=== PATIENT | female | born 1940 | race Two or more races ===

== ENCOUNTER 2018-04-09 10:10 | Outpatient (CLI) | payer OTHER ==
[~2018-04-09 10:10] MED LIST: AVALIDE 300-12.1 TA1; NORVASC5 MG; SYNTHROID50 MCG PO; TOPROL XL50 MG
== END 2018-04-09 10:13 | disposition home or self-care (01) ==
LOC: SONOGRAMA 10:10 → MAMO-SONO 10:15
DX: M65.811 Other synovitis and tenosynovitis, right shoulder (principal)

== ENCOUNTER 2018-05-02 10:32 | Outpatient (CLI) | payer OTHER | END 2018-05-02 10:36 | disposition home or self-care (01) | LOC: NUCLEAR 10:32 | DX: I11.9 Hypertensive heart disease without heart failure (principal); R00.1 Bradycardia, unspecified; I52 Other heart disorders in diseases classified elsewhere ==

== ENCOUNTER → 2018-10-14 | Outpatient (CLI) | payer OTHER | END | disposition home or self-care (01) | LOC: RAD 501 10:56 | DX: S09.93XA Unspecified injury of face, initial encounter (principal); S49.91XA Unspecified injury of right shoulder and upper arm, initial encounter ==

== ENCOUNTER 2018-11-18 09:23 | Emergency (ER) | payer OTHER ==
[~2018-11-18] VITALS: Ht 157.5 cm; Wt 63.5 kg
[2018-11-18] MEDS ORDERED: FORTAMET500 MG (09:33)
[2018-11-19] MEDS ORDERED: CARDURA8 MG PO (11:56)
== END 2018-11-18 15:45 | disposition home or self-care (01) ==
LOC: ER 09:23
DX: R10.11 Right upper quadrant pain (principal); R11.2 Nausea with vomiting, unspecified

== ENCOUNTER 2018-11-19 11:40 | Inpatient (IN) | payer OTHER ==
[~2018-11-19] VITALS: Ht 157.5 cm; Wt 63.5 kg
[~2018-11-19 11:40] MED LIST changes: +FORTAMET500 MG
[2018-11-19] MEDS ORDERED: CARDURA8 MG PO (11:56)
--- NOTE | 2018-11-19 11:56 | NUR ---
PACIENTE ALERTA Y ORIENTADA EN NELY KATHY ESFERAS, REFIERE DOLOR ABDOMINAL Y NAUSEAS DESDE EL DANI. VIENE CON REFERIDO MEDICO DE DR DIONISIO RIGGS POR SBO VS DIVERTICULITIS.
--- NOTE | 2018-11-19 13:05 | NUR ---
SE ORIENTA A PT SOBRE ORDENES MEDICAS, REFIERE ENTENDER. SE COLECTAN MUESTRAS Y SE CANALIZA BAJO MEDIDAS ASEPTICAS.
--- NOTE | 2018-11-19 13:46 | NUR ---
SE ORIENTA A PT SOBRE CT ABDOMINOPELVICO Y CONTRASTE PO . REFIERE ENTENDER. PT COMIENZA A TOMARSE CONTRASTES, TOLERA AL MOMENTO.
--- NOTE | 2018-11-19 15:29 | NUR ---
SE RECIBE DE TURNO ANTERIOR FEMENINA DE 77ANOS ALERTA,ORIENTADA EN KATHY ESFERAS,EN COMPANIA DE FAMILIAR.PENDIENTE CT ABD/PEL 4:40PM.
== END 2018-11-22 14:37 | disposition home or self-care (01) | DRG 389 ==
LOC: ER 11:40 → MEDI 17:41
PROVIDERS: ADMIT Internal Medicine
PROC: BW21ZZZ Computerized Tomography (CT Scan) of Abdomen and Pelvis (ICD-10-PCS; principal; 2018-11-19)
PROC: 0DH67UZ Insertion of Feeding Device into Stomach, Via Natural or Artificial Opening (ICD-10-PCS; 2018-11-20)
PROC: 3E0G76Z Introduction of Nutritional Substance into Upper GI, Via Natural or Artificial Opening (ICD-10-PCS; 2018-11-20)
PROC: 3E0336Z Introduction of Nutritional Substance into Peripheral Vein, Percutaneous Approach (ICD-10-PCS; 2018-11-20)
DX: K56.690 Other partial intestinal obstruction (principal); N39.0 Urinary tract infection, site not specified; I11.9 Hypertensive heart disease without heart failure; E05.80 Other thyrotoxicosis without thyrotoxic crisis or storm; T38.1X5A Adverse effect of thyroid hormones and substitutes, initial encounter; E11.65 Type 2 diabetes mellitus with hyperglycemia; E03.8 Other specified hypothyroidism

== ENCOUNTER 2019-02-27 08:06 | Outpatient (CLI) | payer OTHER ==
[~2019-02-27 08:06] MED LIST changes: +CARDURA8 MG PO
== END 2019-02-27 08:17 | disposition home or self-care (01) ==
LOC: RX STUDY 08:06
DX: K57.30 Diverticulosis of large intestine without perforation or abscess without bleeding (principal); Z86.010 Personal history of colon polyps

== ENCOUNTER 2019-03-13 11:25 | Outpatient (CLI) | payer OTHER | END 2019-03-13 11:27 | disposition home or self-care (01) | LOC: RAD 11:25 | DX: M25.562 Pain in left knee (principal) ==

== ENCOUNTER 2019-03-19 07:58 | Outpatient (CLI) | payer OTHER | END 2019-03-19 08:01 | disposition home or self-care (01) | LOC: MRI 07:58 | DX: M25.562 Pain in left knee (principal) | CPT/HCPCS: 73721 ==

== ENCOUNTER 2019-03-24 09:56 | Outpatient (CLI) | payer OTHER | END 2019-03-24 09:58 | disposition home or self-care (01) | LOC: RAD 09:56 | DX: R07.89 Other chest pain (principal); Z01.818 Encounter for other preprocedural examination ==

== ENCOUNTER 2019-06-05 12:06 | Outpatient (CLI) | payer OTHER | END 2019-06-05 12:20 | disposition home or self-care (01) | LOC: RAD 12:06 | DX: M25.562 Pain in left knee (principal); E78.00 Pure hypercholesterolemia, unspecified; I11.9 Hypertensive heart disease without heart failure; E04.2 Nontoxic multinodular goiter ==

== ENCOUNTER 2019-08-27 07:54 | Outpatient (CLI) | payer OTHER | END 2019-08-27 08:03 | disposition home or self-care (01) | LOC: NUCLEAR 07:54 | DX: I82.403 Acute embolism and thrombosis of unspecified deep veins of lower extremity, bilateral (principal) ==

== ENCOUNTER 2019-12-16 09:02 | Outpatient (CLI) | payer OTHER | END 2019-12-16 09:04 | disposition home or self-care (01) | LOC: SONOGRAMA 09:02 | PROVIDERS: ATTEND Internal Medicine | DX: R10.84 Generalized abdominal pain (principal) ==

== ENCOUNTER 2020-11-18 14:55 | Inpatient (IN) | payer OTHER ==
[~2020-11-18] VITALS: Ht 157.5 cm; Wt 59.0 kg
[2020-11-18] MEDS ORDERED: DOXAZOSIN MESYLA8 MG PO (15:23)
--- NOTE | 2020-11-18 15:23 | NUR ---
SE RECIBE PACIENTE ALERTA, ORIENTADA X 3 ESFERAS LLEGA EN AMBULANCIA REFERIDA DE [facility]. PERSONAL DE PARAMEDICOS INDICAN QUE FUE POR DOLOR DE PECHO, LLEGA CON IV. TRIDIL 3ML. SE ESTIMAN S/V SE UBICA EN AREA DE CHEST PAIN , SE CONECTA A MONITOR CARDIACO, SE REALIZA EKG. SE PRESENTA A POR PERSONAL DE AMBULANCIAS, SE ALLYSON CON BARRANDAS ELEVADAS A NIVEL MAS BAJO EN CAMA # 16. NO SE PUDO COMPLETAR LA RESOLUCION DE MEDICAMENTOS YA QUE PTE NO SE ACUERDA Y LOS FAMILIARES NO ALVARES LLEGADO. SE ENTREGA A [place].
--- NOTE | 2020-11-18 16:01 | NUR ---
SE RECIBE PTE FEMENINA ALERTA Y ORIENTADA X3,ESTA LLEGA EN AMBULANCIA Y RES EVALUADA POR ,ES COLOCADA EN CAMA 316 CPU SE CONECTA A MONITOR CARDIACO DWIGHT Y OXIMETRIA DE PULSO SE REALIZAN S/V Y SE NOTIFICA A ,SE NOTIFICA PTE LLEGA [facility] Y TRIDIL@3ML/HR,SE NOTIFICA A BV/P SE REALIZA MANUAL,SE MANTIENE PTE KAYA DE DOLOR,EN OBSERVACION POR CAMBIOS.
[2020-11-19] MEDS ORDERED: PANTOPRAZOLE SO40 MG (08:39)
[2020-11-19] MEDS ORDERED: BUDESONIDE ER9 MG (08:39)
[2020-11-19] MEDS ORDERED: ATORVASTATIN CA10 MG (08:39)
[2020-11-19] MEDS ORDERED: IRBESARTAN300 MG (08:39)
[2020-11-21] MEDS ORDERED: AMLODIPINE BESYL5 MG PO (08:57)
[2020-11-21] MEDS ORDERED: LIPITOR20 MG PO (08:57)
[2020-11-21] MEDS ORDERED: HYDRODIURIL12.5 MG PO (08:58)
[2020-11-21] MEDS ORDERED: LOSARTAN POTASS50 MG PO (08:58)
[2020-11-21] MEDS ORDERED: LEVOTHYROXINE50 MCG PO (08:59)
== END 2020-11-21 11:42 | disposition home or self-care (01) | DRG 305 ==
LOC: ER 14:55 → MEDJ 21:59 → ICU-2 21:59 → SEC-K 11-19 12:39 → MEDJ 11-19 12:45
PROVIDERS: ADMIT Internal Medicine; ATTEND Internal Medicine
PROC: B24BZZZ Ultrasonography of Heart with Aorta (ICD-10-PCS; 2020-11-18)
PROC: BW28ZZZ Computerized Tomography (CT Scan) of Head (ICD-10-PCS; principal; 2020-11-19)
DX: I16.1 Hypertensive emergency (principal); E03.8 Other specified hypothyroidism; E11.9 Type 2 diabetes mellitus without complications; R77.8 Other specified abnormalities of plasma proteins; I11.9 Hypertensive heart disease without heart failure

== ENCOUNTER 2021-01-12 07:20 | Outpatient (CLI) | payer OTHER ==
[~2021-01-12 07:20] MED LIST changes: +AMLODIPINE BESYL5 MG PO; +ATORVASTATIN CA10 MG; +BUDESONIDE ER9 MG; +DOXAZOSIN MESYLA8 MG PO; +HYDRODIURIL12.5 MG PO; +IRBESARTAN300 MG; +LEVOTHYROXINE50 MCG PO; +LIPITOR20 MG PO; +LOSARTAN POTASS50 MG PO; +PANTOPRAZOLE SO40 MG
== END 2021-01-12 07:22 | disposition home or self-care (01) ==
LOC: NUCLEAR 07:20
PROVIDERS: ATTEND Internal Medicine
DX: K81.1 Chronic cholecystitis (principal); R10.9 Unspecified abdominal pain
CPT/HCPCS: 78227; A9537; J2805

== ENCOUNTER 2021-10-20 07:57 | Outpatient (CLI) | payer OTHER | END 2021-10-20 08:00 | disposition home or self-care (01) | LOC: TOM 07:57 | PROVIDERS: ATTEND Surgery | DX: R19.7 Diarrhea, unspecified (principal) ==

== ENCOUNTER 2022-08-21 04:17 | Emergency (ER) | payer OTHER ==
[~2022-08-21] VITALS: Ht 160 cm; Wt 63.5 kg
[2022-08-21] MEDS ORDERED: GLIPIZIDE ER2.5 MG PO (04:29)
[2022-08-21] MEDS ORDERED: CHILDREN'S ASPI81 MG PO (04:30)
== END 2022-08-21 09:21 | disposition home or self-care (01) ==
LOC: ER 04:17
DX: I11.9 Hypertensive heart disease without heart failure (principal); R06.02 Shortness of breath; Z20.822 Contact with and (suspected) exposure to COVID-19

== ENCOUNTER 2024-11-06 13:39 | Outpatient (CLI) | payer OTHER ==
[~2024-11-06 13:39] MED LIST changes: +CHILDREN'S ASPI81 MG PO; +GLIPIZIDE ER2.5 MG PO
== END 2024-11-06 13:47 | disposition home or self-care (01) ==
LOC: RAD 13:39
PROVIDERS: ATTEND Internal Medicine
DX: M54.2 Cervicalgia (principal)

== ENCOUNTER 2024-11-27 10:58 | Outpatient (CLI) | payer OTHER | END 2024-11-27 10:59 | disposition home or self-care (01) | LOC: NUCLEAR 10:58 | PROVIDERS: ATTEND Internal Medicine | DX: I65.23 Occlusion and stenosis of bilateral carotid arteries (principal) ==